=== PATIENT | female | born 1970 | race Caucasian/White ===

== ENCOUNTER 2016-06-16 | Outpatient (CLI) | payer MEDICAID | END 2016-06-16 09:28 | disposition critical access hospital (66) | CPT/HCPCS: A0425; A0427 ==

== ENCOUNTER 2016-06-16 09:45 | Emergency (ER) | payer MEDICAID ==
[2016-06-16] MEDS ORDERED: HYDROmorphone 1 MG/ML SYRINGE IVP STA (09:58)
[2016-06-16] MEDS ORDERED: ONDANSETRON 4 MG/2 ML VIAL IVP STA (09:58)
[2016-06-16] MEDS ORDERED: SODIUM CHLORIDE 0.9% 1,000 ML IV ONE (09:58)
[2016-06-16] MEDS ORDERED: HYDROmorphone 1 MG/ML SYRINGE ONE (10:12)
[2016-06-16] MEDS ORDERED: ONDANSETRON 4 MG/2 ML VIAL ONE (10:13)
[2016-06-16] MEDS ORDERED: IOPAMIDOL-300 100 ML VIAL IVP ONE (11:59)
[2016-06-16] MEDS ORDERED: ONDANSETRON ODT 4 MG TABLET TL STA (13:56)
[2016-06-16] MEDS ORDERED: ONDANSETRON ODT 4 MG TABLET ONE (13:56)
== END 2016-06-16 14:38 | disposition home or self-care (01) ==
DX: R19.7 Diarrhea, unspecified (principal); R11.2 Nausea with vomiting, unspecified; R10.32 Left lower quadrant pain; I10 Essential (primary) hypertension; R73.9 Hyperglycemia, unspecified; Z87.19 Personal history of other diseases of the digestive system
CPT/HCPCS: 36415; 74177; 80053; 82270; 83690; 84703; 85025; 87045; 87046; 87077; 87493; 96374; 96375; 99284; J1170; Q0162; Q9967

== ENCOUNTER 2017-05-10 00:59 | Outpatient (CLI) | payer MEDICAID | END 2017-05-10 01:00 | disposition critical access hospital (66) | LOC: EMS 00:59 | PROVIDERS: ATTEND Surgery | DX: R55 Syncope and collapse (principal) | CPT/HCPCS: A0425; A0427 ==

== ENCOUNTER 2017-06-03 11:48 | Outpatient (CLI) | payer MEDICAID ==
[2017-06-03 20:05] LABS: BASOPHILS # (AUTO) 0.1 10^3/uL (0.0-0.1); EOSINOPHILS # (AUTO) 0.2 10^3/uL (0.0-0.7); EOSINOPHILS % (AUTO) 2.4 %; HGB - HEMOGLOBIN 15.9 g/dL (12.0-16.0); LYMPHOCYTES # (AUTO) 2.7 10^3/uL (1.5-3.5); LYMPHOCYTES % (AUTO) 30.9 %; MEAN CORPUSCULAR HEMOGLOBIN 28.4 pg (27.0-31.0); MEAN CORPUSCULAR HGB CONC 33.4 g/dL (32.0-36.0); MEAN CORPUSCULAR VOLUME 85.1 fL (81.0-99.0); MEAN PLATELET VOLUME 8.7 fL (7.9-10.8); MONOCYTES # (AUTO) 0.7 10^3/uL (0.0-1.0); MONOCYTES % (AUTO) 7.8 %; NEUTROPHILS % (AUTO) 57.9 %; PLT - PLATELET COUNT 297 10^3/uL (130-450); RED CELL DISTRIBUTION WIDTH 13.2 % (12.0-15.0); WHITE BLOOD COUNT 8.7 x10^3/uL (4.8-10.8)
[2017-06-03 20:27] LABS: ALBUMIN 4.9 g/dL (3.2-5.5); ALBUMIN/GLOBULIN RATIO 1.3 (1.0-2.2); BILIRUBIN,TOTAL 0.7 mg/dL (0.2-1.0); CALCIUM 9.6 mg/dL (8.5-10.3); TOTAL PROTEIN 8.7 g/dL (6.7-8.2)
== END 2017-06-03 11:49 | disposition home or self-care (01) ==
LOC: LAB.N 11:48
PROVIDERS: ATTEND Nurse Practitioner Gerontology
DX: R10.9 Unspecified abdominal pain (principal)
CPT/HCPCS: 36415; 80053; 85025

== ENCOUNTER 2017-09-19 11:01 | Outpatient (CLI) | payer MEDICAID ==
--- NOTE | 2017-09-21 13:10 | Ultrasound Report ---
MESENTERIC ARTERIAL DUPLEX: 09/19/2017 CLINICAL INDICATION: Diarrhea. TECHNIQUE: Real-time sonographic vascular imaging was performed by the agent contract clerk through the mesenteric arteries utilizing both color-flow and Doppler flow analysis. Multiple title insurance sales representative static images were saved for review. AORTA 77 cm/s CELIAC AXIS Origin 60 cm/s Proximal 82 cm/s Mid 107 cm/s Distal 90 cm/s Hepatic Artery 109 cm/s Splenic Artery 125 cm/s SMA Origin 92 cm/s Proximal 160 cm/s Mid 138 cm/s Distal 109 cm/s NAUN Origin 89 cm/s Proximal 112 cm/s Mid 131 cm/s Distal not seen AVERAGE VELOCITIES < 70% Stenosis 0 Aorta: 50 120 cm/s Celiac Trunk: 100 200 cm/s Superior Mesenteric Artery: 124 275 cm/s Inferior Mesenteric: 108 155 cm/s Splenic Artery: 70 110 cm/s Common Hepatic Artery 70 110 cm/s Renal: 60 180 cm/s FINDINGS: There is no evidence of a hemodynamically significant stenosis in the celiac, hepatic, splenic, superior mesenteric, or inferior mesenteric arteries. No free fluid is present. The visualized abdominal aorta appears unremarkable. IMPRESSION: NO EVIDENCE OF A HEMODYNAMICALLY SIGNIFICANT MESENTERIC STENOSIS. TD: 09/19/2017 13:38 ESSIE
== END 2017-09-19 11:02 | disposition home or self-care (01) ==
LOC: DI 11:01
PROVIDERS: ATTEND Internal Medicine Gastroenterology
DX: R19.7 Diarrhea, unspecified (principal)
CPT/HCPCS: 93975

== ENCOUNTER 2018-02-09 10:00 | Emergency (ER) | payer MEDICAID ==
--- NOTE | 2018-02-09 10:34 | ED Physician Documentation ---
PD HPI HEENT - Stated complaint Stated Complaint: LIP PX - Chief complaint Chief Complaint: Heent - History obtained from History obtained from: Patient - History of Present Illness Timing - onset: How many days ago Timing - details: Gradual onset, Still present Location: Mouth (and outer lip) Improves: No: Medication (she has been using topical Zovirax without improvement. The rash has grown in size..) Associated symptoms: No: Fever, Swollen nodes Review of Systems Constitutional: denies: Fever, Chills, Myalgias Nose: denies: Rhinorrhea / runny nose, Congestion PD PAST MEDICAL HISTORY - Past Medical History Past Medical History: Yes Cardiovascular: Hypertension Respiratory: None Endocrine/Autoimmune: None GI: Other CASH POSTING REPRESENTATIVE: None : None HEENT: None Psych: Depression, Anxiety, Claustrophobia Musculoskeletal: Osteoarthritis, Chronic back pain Derm: Eczema - Past Surgical History Past Surgical History: Yes Ortho: Hip replacement /CASH POSTING REPRESENTATIVE: Tubal ligation - Present Medications Home Medications: Ambulatory Orders Medication Instructions Recorded Confirmed Bupropion HCl [Bupropion HCl Sr] 150 mg PO Q12H 05/01/15 05/10/17 Fentanyl [Duragesic 75mcg patch] 75 mcg TOP Q72H 05/01/15 05/10/17 Fluoxetine HCl 20 mg PO DAILY 05/01/15 05/10/17 Gabapentin [Neurontin] 600 mg PO TID 05/01/15 05/10/17 Nadolol 20 mg PO BID 05/01/15 05/10/17 tiZANidine [Zanaflex] 4 mg PO TID PRN 05/01/15 05/10/17 Cetirizine [ZyrTEC] 10 mg PO DAILY PRN 05/10/17 05/10/17 Acyclovir 400 mg PO 5XD #25 tablet 02/09/18 Doxycycline Monohydrate 100 mg PO BID #14 tablet 02/09/18 HYDROcod/ACETAM 5/325 [Bassett 5/325] 1 tab PO Q6H PRN #15 tablet 02/09/18 Mupirocin 1 applic TP TID #15 oint...g. 02/09/18 - Allergies Allergies/Adverse Reactions: Allergies Allergy/AdvReac Type Severity Reaction Status Date / Time No Known Drug Allergies Allergy Verified 02/09/18 10:10 - Social History Does the pt smoke?: No Smoking Status: Never smoker Does the pt drink ETOH?: No Does the pt have substance abuse?: No - Immunizations Immunizations are current?: Yes - POLST Patient has POLST: No PD ED PE NORMAL - Vitals Vital signs reviewed: Yes - General General: Alert and oriented X 3, No acute distress, Well developed/nourished - HEENT HEENT: Ears normal, Pharynx benign, Dentition benign, Other - Neck Neck: Supple, no meningeal sign, No adenopathy - Cardiac Cardiac: RRR, No murmur - Respiratory Respiratory: Clear bilaterally Results - Vitals Vitals: Vital Signs - 24 hr 02/09/18 02/09/18 10:06 11:29 Temperature 36 C L 36.4 C L Heart Rate 70 61 Respiratory 16 17 Rate Blood Pressure 137/92 H 135/86 H O2 Saturation 96 100 Oxygen O2 Source Room air PD MEDICAL DECISION MAKING - ED course Complexity details: considered differential (still with clumps of red based skin and vesicles but then also redness around it and very painful.), d/w patient - Sepsis Event Vital Signs: Vital Signs - 24 hr 02/09/18 02/09/18 10:06 11:29 Temperature 36 C L 36.4 C L Heart Rate 70 61 Respiratory 16 17 Rate Blood Pressure 137/92 H 135/86 H O2 Saturation 96 100 Oxygen O2 Source Room air Departure - Departure Disposition: 01 Home, Self Care Clinical Impression: Oral herpes simplex infection, Wound infection Condition: Stable Record reviewed to determine appropriate education?: Yes Follow-Up: Ghazal Shaffer ARNP [Primary Care Provider] - Prescriptions: Acyclovir 400 mg PO 5XD #25 tablet Doxycycline Monohydrate 100 mg PO BID #14 tablet HYDROcod/ACETAM 5/325 [Bassett 5/325] 1 tab PO Q6H PRN #15 tablet PRN Reason: Pain Mupirocin 1 applic TP TID #15 oint...g. Comments: Clean the area with soap and water and apply antibiotic ointment topically. Add oral antibiotic and antiviral to it as it looks like an outbreak of the herpes with infection to it as well. Recheck if not improved over the next few days. Discharge Date/Time: 02/09/18 12:15
[2018-02-09] MEDS ORDERED: HYDROcod/ACETAM 5/325 MG TABLET PO STA (11:11)
[2018-02-09] MEDS ORDERED: ACYCLOVIR 200 MG CAPSULE PO STA (11:11)
[2018-02-09] MEDS ORDERED: DOXYCYCLINE 100 MG TABLET PO STA (11:11)
[2018-02-09 11:29] VITALS: BP 135/86
== END 2018-02-09 12:15 | disposition home or self-care (01) ==
LOC: ED 10:00
DX: B00.1 Herpesviral vesicular dermatitis (principal); I10 Essential (primary) hypertension
CPT/HCPCS: 99283; A9270

== ENCOUNTER 2018-08-01 11:52 | Outpatient (CLI) | payer MEDICAID ==
--- NOTE | 2018-08-01 16:13 | MRI Report ---
Reason: LUMBAGO WITH SCIATICA,RIGHT SIDE Procedure Date: 08/01/2018 Accession Number: [id number] / [id number] Procedure: MRI - Lumbar Spine W/O CPT Code: FULL RESULT: EXAM: MRI LUMBAR SPINE WITHOUT CONTRAST EXAM DATE: 08/01/2018 12:38 PM. CLINICAL HISTORY: Worsening low back pain. Sciatica. Right lower extremity radiculopathy. Worsening bilateral leg pain and numbness. COMPARISON: LUMBAR SPINE W/O 09/30/2012 8:00 AM. TECHNIQUE: Multiplanar, multisequence T1-weighted and fluid-sensitive sequences of the lumbar spine from T12 to S1 without contrast. Other: None. FINDINGS: Spinal Canal: The conus terminates at L1. The conus medullaris and cauda equina are unremarkable. Alignment: New mild degenerative anterolisthesis of L4 on L5. Bone Marrow: Five [id number] lumbar vertebral bodies are assumed. Prominent but chronic Modic type II degenerative endplate signal changes at L5. Lumbar vertebral body heights are maintained. No acute marrow edema. Disk Levels/Facets: T12-L1: Stable mild chronic degenerative changes. No stenosis. L1-L2: Stable minimal chronic degenerative changes. No stenosis. L2-L3: Interval development of mild disk space dehydration and narrowing. Stable minimal facet arthropathy. Minimal broad-based bulge but no focal extrusion or significant stenosis. L3-L4: Mildly more prominent diffuse disk space dehydration and narrowing. Mild to moderate probably slightly progressive facet arthropathy. Shallow circumferential disk bulge. Similar findings of additional asymmetric broad-based shallow left intraforaminal and far left lateral disk protrusion. No significant or progressive stenosis of the central canal or neural foramina, the degree of mild left foraminal stenosis appears stable. L4-L5: Minimal to mild progressive degenerative disk disease. Moderate to severe and progressive bilateral facet arthropathy. Ligamentum flavum thickening. Minimal broad-based bulge. No focal disk extrusion. Interval progression of now mild to moderate degenerative stenosis of the central canal and lateral recesses from a combination primarily of posterior dominant hypertrophic degenerative changes plus grade 1 degenerative spondylolisthesis. Central canal narrowing does not appear to be significantly contributed to by bulging disk. Foraminal stenosis is minimal. L5-S1: Moderate to severe chronic appearing degenerative disk disease. Mild facet arthropathy. Circumferential disk bulge. Significantly larger asymmetric left and right intraforaminal and far lateral disk protrusion with osteophyte. Similar findings were present previously. Stable appearing prominent bilateral foraminal stenosis that appears chronic, most severe on the left. Stable mild impingement also of the left lateral recess. Musculature: No acute edema. Stable mild diffuse fatty atrophy. Other: Incompletely visualized gallbladder, possible multi-nodular hypointensities dependently, possible numerous gallstones. IMPRESSION: 1. New grade 1 degenerative L4 and L5 spondylolisthesis secondary to moderate to severe and progressive L4-L5 facet arthropathy. 2. Mild progressive degenerative disk disease at L2-L3, L3-L4 and L4-L5. 3. Stable minor degenerative changes without stenosis at T12-L1 and L1-L2. 4. Chronic appearing moderate to severe degenerative changes at L5-S1. Potentially significant stenosis at this level left greater than right is present but essentially unchanged from prior. 5. Progressive now mild to moderate stenosis of the central canal and lateral recesses at L4-L5. Comment: The following findings are so common in adults without low back pain that while we report their presence, they must be interpreted with caution and in the context of the clinical situation. (Reference Allank et al, Spine 2001) Prevalence of findings in patients without low back pain: Disk degeneration (any evidence): 92% Disk desiccation/T2 signal loss: 83% Disk height loss: 56% Disk bulge: 64% Disk protrusion: 32% Annular tear/high intensity zone: 38% RADIA
== END 2018-08-01 11:53 | disposition home or self-care (01) ==
LOC: DI 11:52
PROVIDERS: ATTEND Acupuncturist
DX: M51.36 Other intervertebral disc degeneration, lumbar region (principal); M51.26 Other intervertebral disc displacement, lumbar region; M48.061 Spinal stenosis, lumbar region without neurogenic claudication; M47.9 Spondylosis, unspecified; M43.16 Spondylolisthesis, lumbar region; M51.37 Other intervertebral disc degeneration, lumbosacral region; M48.07 Spinal stenosis, lumbosacral region; M51.27 Other intervertebral disc displacement, lumbosacral region
CPT/HCPCS: 72148

== ENCOUNTER 2018-08-10 10:12 | Outpatient (CLI) | payer MEDICAID ==
--- NOTE | 2018-08-10 16:57 | Mammography Report ---
Reason: SCREENING MAMMO Procedure Date: 08/10/2018 Accession Number: [id number] / [id number] Procedure: MGN - Screening Mammo Dig Bilat CPT Code: FULL RESULT: EXAM: Screening Mammo Dig Bilat DATE: 08/10/2018 10:41 AM CLINICAL HISTORY: Baseline screening mammogram. Family history of breast cancer in maternal and paternal aunts in their 50s. TECHNIQUE: Bilateral CC and MLO views were obtained. COMPARISON: Baseline exam. FINDINGS: The breasts demonstrate heterogeneously dense fibroglandular parenchyma bilaterally. Right breast: There is suboptimal inclusion of the posterior inferior breast/inframammary fold region on the right MLO view. Recommend technical repeat right MLO view. There are no suspicious masses, calcifications or areas of distortion in the included right breast. Left breast: There is a 3 cm one view asymmetry seen on the MLO view in the superior breast, 5 cm from the nipple. There are no suspicious calcifications. IMPRESSION: Incomplete examination RECOMMENDATION: Right breast: Suboptimal inclusion of the posterior inferior breast/inframammary fold region. Incomplete. BI-RADS Category 0. Recommend technical repeat of the right MLO view. Left breast: 3 cm one view asymmetry superior left MLO view only. Incomplete. BI-RADS Category 0. Additional imaging is recommended. BI-RADS CATEGORY 0: Incomplete examination STANDARD QUALIFYING STATEMENTS: 1. This examination was reviewed with the aid of Computer-Aided Detection (CAD). 2. A negative or benign imaging report should not preclude biopsy if clinically suspicious findings are present. 3. Dense breasts may obscure an underlying neoplasm. 4. This examination was reviewed without the aid of 3D breast imaging (tomosynthesis).
== END 2018-08-10 10:13 | disposition home or self-care (01) ==
LOC: DI.N 10:12
PROVIDERS: ATTEND Nurse Practitioner Gerontology
DX: Z12.31 Encounter for screening mammogram for malignant neoplasm of breast (principal); R92.8 Other abnormal and inconclusive findings on diagnostic imaging of breast; Z80.3 Family history of malignant neoplasm of breast
CPT/HCPCS: 77067

== ENCOUNTER 2018-08-16 10:04 | Outpatient (CLI) | payer MEDICAID ==
--- NOTE | 2018-08-16 11:35 | Mammography Report ---
Reason: ABNORMAL MAMMOGRAM Procedure Date: 08/16/2018 Accession Number: [id number] / [id number] Procedure: MAC - Diag Special Views Dig LT CPT Code: FULL RESULT: EXAM: Diag Special Views Dig LT DATE: 08/16/2018 11:06 AM CLINICAL HISTORY: Recall from screening exam 08/10/2018 for one-view asymmetry seen superior left MLO view only. Technical repeat right MLO view for IMF. TECHNIQUE: Left MLO spot compression, left MLO 2-D and 3-D, repeat right MLO. COMPARISON: Baseline screening exam of 08/10/2018 FINDINGS: The breasts demonstrate heterogeneously dense fibroglandular parenchyma bilaterally. Right breast: Repeat right MLO view is technically adequate. There are no suspicious masses, calcifications or areas of distortion. Left breast: One view asymmetry in the superior MLO view of recent screening exam does not persist on additional views, consistent with summation of normal tissues. There are no suspicious masses, calcifications or areas of distortion. IMPRESSION: Right breast: Negative. BI-RADS Category 1. Recommend annual screening mammography. Left breast: Finding recalled from recent screening exam does not persist, consistent with summation of normal tissues. Negative. BI-RADS Category 1. Recommend annual screening mammography. BI-RADS CATEGORY 1: Negative STANDARD QUALIFYING STATEMENTS: 1. This examination was not reviewed with the aid of Computer-Aided Detection (CAD). 2. A negative or benign imaging report should not preclude biopsy if clinically suspicious findings are present. 3. Dense breasts may obscure an underlying neoplasm. 4. This examination was reviewed with the aid of 3D breast imaging (tomosynthesis).
== END 2018-08-16 10:05 | disposition home or self-care (01) ==
LOC: DI 10:04
PROVIDERS: ATTEND Nurse Practitioner Gerontology
DX: R92.8 Other abnormal and inconclusive findings on diagnostic imaging of breast (principal)

== ENCOUNTER 2019-02-12 08:00 | Outpatient (CLI) | payer MEDICAID ==
[2019-02-12 11:50] LABS: BASOPHILS # (AUTO) 0.1 10^3/uL (0.0-0.1); BASOPHILS % (AUTO) 0.6 %; EOSINOPHILS # (AUTO) 0.3 10^3/uL (0.0-0.7); EOSINOPHILS % (AUTO) 2.4 %; HGB - HEMOGLOBIN 14.1 g/dL (12.0-16.0); LYMPHOCYTES # (AUTO) 1.7 10^3/uL (1.5-3.5); LYMPHOCYTES % (AUTO) 16.8 %; MEAN CORPUSCULAR HEMOGLOBIN 29.7 pg (27.0-31.0); MEAN CORPUSCULAR HGB CONC 33.7 g/dL (32.0-36.0); MEAN CORPUSCULAR VOLUME 88.2 fL (81.0-99.0); MEAN PLATELET VOLUME 9.5 fL (7.9-10.8); MONOCYTES # (AUTO) 0.7 10^3/uL (0.0-1.0); MONOCYTES % (AUTO) 6.9 %; NEUTROPHILS # (AUTO) 7.5 10^3/uL (1.5-6.6); NEUTROPHILS % (AUTO) 72.5 %; PLT - PLATELET COUNT 208 10^3/uL (130-450); RED BLOOD COUNT 4.74 10^6/uL (4.20-5.40); RED CELL DISTRIBUTION WIDTH 13.1 % (12.0-15.0); WHITE BLOOD COUNT 10.3 x10^3/uL (4.8-10.8)
[2019-02-12 12:22] LABS: ALBUMIN 4.1 g/dL (3.2-5.5); ALBUMIN/GLOBULIN RATIO 1.2 (1.0-2.2); ALKALINE PHOSPHATASE 24 IU/L (42-121); ALT ALANINE AMINOTRANSFERASE 31 IU/L (10-60); AST ASPARTATE AMINOTRANSFERASE 27 IU/L (10-42); BILIRUBIN,TOTAL 0.6 mg/dL (0.2-1.0); BUN - BLOOD UREA NITROGEN 15 mg/dL (6-20); CALCIUM 9.1 mg/dL (8.5-10.3); CARBON DIOXIDE - CO2 27 mmol/L (21-32); CHLORIDE 103 mmol/L (101-111); CHOL/HDL RATIO 5.3 (<4.4); CHOLESTEROL 206 mg/dL; CREATININE 0.7 mg/dL (0.4-1.0); GFR - MDRD 90 (>89); GLUCOSE 95 mg/dL (70-100); HDL CHOLESTEROL 39 mg/dL; LDL CHOLESTEROL,CALCULATED 137 mg/dL; LDL/HDL RATIO 3.5 (<4.4); SODIUM 140 mmol/L (135-145); TOTAL PROTEIN 7.6 g/dL (6.7-8.2); VLDL CHOLESTEROL 30 mg/dL
== END 2019-02-12 23:59 | disposition home or self-care (01) ==
LOC: LAB.N 08:00
PROVIDERS: ATTEND Nurse Practitioner Gerontology
DX: I10 Essential (primary) hypertension (principal); Z79.899 Other long term (current) drug therapy
CPT/HCPCS: 36415; 80053; 80061; 82306; 83721; 84443; 85025

== ENCOUNTER 2020-06-03 11:49 | Outpatient (CLI) | payer MEDICAID ==
[2020-06-03 17:56] LABS: BASOPHILS # (AUTO) 0.1 10^3/uL (0.0-0.1); BASOPHILS % (AUTO) 0.9 %; EOSINOPHILS # (AUTO) 0.5 10^3/uL (0.0-0.7); EOSINOPHILS % (AUTO) 7.6 %; HGB - HEMOGLOBIN 14.2 g/dL (12.0-16.0); LYMPHOCYTES # (AUTO) 2.1 10^3/uL (1.5-3.5); LYMPHOCYTES % (AUTO) 32.1 %; MEAN CORPUSCULAR HEMOGLOBIN 28.3 pg (27.0-31.0); MEAN CORPUSCULAR HGB CONC 32.7 g/dL (32.0-36.0); MEAN CORPUSCULAR VOLUME 86.6 fL (81.0-99.0); MEAN PLATELET VOLUME 10.4 fL (7.9-10.8); MONOCYTES # (AUTO) 0.5 10^3/uL (0.0-1.0); MONOCYTES % (AUTO) 6.9 %; NEUTROPHILS # (AUTO) 3.4 10^3/uL (1.5-6.6); NEUTROPHILS % (AUTO) 52.2 %; PLT - PLATELET COUNT 216 10^3/uL (130-450); RED BLOOD COUNT 5.01 10^6/uL (4.20-5.40); RED CELL DISTRIBUTION WIDTH 13.5 % (12.0-15.0); WHITE BLOOD COUNT 6.5 x10^3/uL (4.8-10.8)
[2020-06-03 18:12] LABS: BUN - BLOOD UREA NITROGEN 19 mg/dL (6-20); CALCIUM 9.2 mg/dL (8.5-10.3); CARBON DIOXIDE - CO2 25 mmol/L (21-32); CHLORIDE 104 mmol/L (101-111); CHOLESTEROL 246 mg/dL; CREATININE 0.7 mg/dL (0.4-1.0); GLUCOSE 99 mg/dL (70-100); HDL CHOLESTEROL 41 mg/dL; LDL CHOLESTEROL,CALCULATED 155 mg/dL; LDL/HDL RATIO 3.8 (<4.4); SODIUM 138 mmol/L (135-145); VLDL CHOLESTEROL 50 mg/dL
== END 2020-06-03 23:59 | disposition home or self-care (01) ==
LOC: LAB.N 11:49
PROVIDERS: ATTEND Physician Assistant Medical
DX: I10 Essential (primary) hypertension (principal)
CPT/HCPCS: 36415; 80048; 80061; 83721; 84443; 85025